=== PATIENT | male | born 1985 | race Caucasian/White ===

== ENCOUNTER 2016-10-03 10:03 | Emergency (ER) | payer OTHER ==
[~2016-10-03] VITALS: Ht 172.7 cm; Wt 90.7 kg
[2016-10-03 10:04] VITALS: BP 139/87
[2016-10-03] MEDS ORDERED: CLAR10CA3 PO (10:19)
[2016-10-03] MEDS ORDERED: NEXI40CA PO (10:19)
[2016-10-03] MEDS ORDERED: AMBI10TA PO (10:19)
[2016-10-03] MEDS ORDERED: CYMB1CAP5 PO (10:19)
[2016-10-03] MEDS ORDERED: LYRI150C PO (10:19)
[2016-10-03] MEDS ORDERED: NORC1TAB4 PO (10:19)
[2016-10-03] MEDS ORDERED: DOXE10CA PO (10:19)
[2016-10-03] MEDS ORDERED: AMOXICILLIN 500 MG CAP PO ONE (11:15)
[2016-10-03] MEDS ORDERED: AMOX875T PO (11:20)
[2016-10-03] MEDS ORDERED: CHERSYP3 PO (11:20)
[2016-10-03] MEDS ORDERED: TESS100C PO (11:20)
== END 2016-10-03 11:27 | disposition home or self-care (01) ==
LOC: M ED 10:51
DX: J06.9 Acute upper respiratory infection, unspecified (principal); H66.92 Otitis media, unspecified, left ear; K22.70 Barrett's esophagus without dysplasia; G62.9 Polyneuropathy, unspecified; Z79.899 Other long term (current) drug therapy

== ENCOUNTER 2016-10-29 21:23 | Emergency (ER) | payer OTHER ==
[~2016-10-29] VITALS: Ht 172.7 cm; Wt 90.7 kg
[~2016-10-29 21:23] MED LIST: AMBI10TA PO; AMOX875T PO; CHERSYP3 PO; CLAR10CA3 PO; CYMB1CAP5 PO; DOXE10CA PO; LYRI150C PO; NEXI40CA PO; NORC1TAB4 PO; TESS100C PO
[2016-10-29 21:24] VITALS: BP 145/89
[2016-10-29] MEDS ORDERED: VOLT1GEL24 TD (21:39)
[2016-10-29] MEDS ORDERED: PROTPAK PO (21:39)
[2016-10-29] MEDS ORDERED: VIAG100T PO (21:39)
[2016-10-29] MEDS ORDERED: FISH1000 PO (21:39)
[2016-10-29] MEDS ORDERED: AUGM875T27 PO (22:04)
[2016-10-29] MEDS ORDERED: AUGMENTIN 875 MG TAB PO ONE (22:15)
== END 2016-10-29 22:29 | disposition home or self-care (01) ==
LOC: M ED 22:10
DX: J01.90 Acute sinusitis, unspecified (principal); G89.29 Other chronic pain; K22.70 Barrett's esophagus without dysplasia; G62.9 Polyneuropathy, unspecified; Z87.891 Personal history of nicotine dependence; Z79.899 Other long term (current) drug therapy